=== PATIENT | male | born 1990 | race Two or more races ===

== ENCOUNTER 2024-12-19 12:19 | Emergency (ER) | payer OTHER ==
[~2024-12-19] VITALS: Ht 180.3 cm; Wt 81.6 kg
[2024-12-19 12:51] VITALS: BP 100/60; TEMP 98.1
[2024-12-19] MEDS ORDERED: TDAP [DIPH/PERTUSSIS/TET] 0.5 ML VIAL IM ONE (13:10)
[2024-12-19] MEDS: TDAP [DIPH/PERTUSSIS/TET] 0.5 ML VIAL IM ONE (13:24)
[2024-12-19 13:29] VITALS: O2SAT 98
== END 2024-12-19 13:32 | disposition home or self-care (01) ==
LOC: ER 12:23
DX: S01.81XA Laceration without foreign body of other part of head, initial encounter (principal); W22.09XA Striking against other stationary object, initial encounter; Y93.02 Activity, running; Y92.89 Other specified places as the place of occurrence of the external cause; Y99.8 Other external cause status
CPT/HCPCS: 90715